=== PATIENT | female | born 1965 | race Caucasian/White ===

== ENCOUNTER 2020-12-22 15:46 | Emergency (ER) | payer OTHER ==
[~2020-12-22] VITALS: Ht 154.9 cm; Wt 66.2 kg
[~2020-12-22 15:46] MED LIST: ABILIFY 5 MG TAB5 MG PO; ASPIR 8181 MG PO; ASPIR-TRIN325 MG PO; ATIVAN1 MG; CITALOPRAM; FLEXERIL PO; HYDROCODON-ACE1 EAC7 PO; HYDROCODONE-AP1 EAC6 PO; KEPPRA 500 MG500 M2 PO; LEXAPRO20 MG PO; LISINOPRIL; LISINOPRIL2.5 MG PO; LISINOPRIL20 MG PO; MISC; PROZAC 10 MG CA10 M1 PO; TOPROL XL100 MG PO; TOPROL XL25 MG PO; TRINATE TABLET1 TAB PO
[2020-12-22 16:04] LABS: ABSOLUTE BASOPHILS 0.1 thou/uL (0.0-0.2); ABSOLUTE EOSINOPHILS 0.1 thou/uL (0.0-0.7); ABSOLUTE LYMPHOCYTES 2.4 thou/uL (0.8-5.3); ABSOLUTE MONOCYTES 0.9 thou/uL (0.0-1.2); ABSOLUTE NEUTROPHILS 4.8 thou/uL (1.6-8.1); EOSINOPHILS 1.6 %; HEMOGLOBIN 14.1 gm/dL (12.0-15.0); LYMPHOCYTES 28.9 %; MCH 32.5 pg (26.0-34.0); MCHC 34.4 g/dL (28.0-37.0); MCV 94.3 fL (80.0-100.0); MONOCYTES 10.6 %; NUCLEATED RBCS 0 /100WBC; PLATELET COUNT* 358 thou/uL (150-400); POLYS 57.9 %; RBC 4.34 mil/uL (4.20-5.00); RDW-CV 12.7 % (10.5-14.5); WBC 8.2 thou/uL (4.0-11.0)
[2020-12-22 16:05] LABS: URINE BILIRUBIN NEGATIVE (Negative); URINE BLOOD NEGATIVE (Negative); URINE CLARITY CLEAR; URINE COLOR YELLOW; URINE GLUCOSE-RANDOM NEGATIVE (Negative); URINE KETONES NEGATIVE (Negative); URINE LEUKOCYTES-REFLEX NEGATIVE (Negative); URINE NITRITE-REFLEX NEGATIVE (Negative); URINE PROTEIN NEGATIVE (Negative); URINE UROBILINOGEN 0.2 E.U./dl (0.2-1.0)
[2020-12-22 16:10] LABS: AMP/METHAMP Negative (Negative); BARBITURATES Negative (Negative); BENZODIAZEPINES Negative (Negative); COCAINE Negative (Negative); METHADONE Negative (Negative); OPIATES Negative (Negative); PCP Negative (Negative); THC Negative (Negative)
[2020-12-22 16:13] LABS: CALCIUM 8.6 mg/dL (8.5-10.1); CREATININE 0.9 mg/dL (0.6-1.3); POTASSIUM 3.6 mmol/L (3.5-5.1)
[2020-12-22 16:29] LABS: ALBUMIN 3.9 g/dL (3.4-5.0); TOTAL BILIRUBIN 0.2 mg/dL (<0.1-1.0); TOTAL PROTEIN 7.4 g/dL (6.4-8.2)
[2020-12-22 18:41] VITALS: BP 109/74
--- NOTE | 2020-12-23 10:43 | EKG ---
[place] [address] ELECTROCARDIOGRAM REPORT Name: ALEAH CHRISTOPHER Room: [facility]#: [id number] Admission: 12/22/20 Attend Phys: Discharge: 12/22/20 Date of : 65 Date of Service: 12/22/20 1557 Report #: [id number] THIS REPORT FOR: //name// [facility] ED Test Date: 2020-12-22 Test Time: 15:57:36 Pat Name: ALEAH CHRISTOPHER Department: Room: Gender: F [employer] Operational Test: PABLITO : 1965 Requested By: Kenney Morocho Order Number: [id number] MD: Silviano Camargo Measurements Intervals [place] Rate: 98 P: 52 FL: 161 QRS: 29 QRSD: 76 T: 17 QT: 359 QTc: 459 Interpretive Statements Sinus rhythm Probable left atrial enlargement Borderline T wave abnormalities Artifact in lead(s) II,III,aVR,aVL,aVF Compared to ECG 05/24/2016 10:39:22 Sinus tachycardia no longer present Left ventricular hypertrophy no longer present Electronically Signed On 12-23-2020 10:42:57 CDT by Silviano Camargo [email or web address] <ELECTRONICALLY SIGNED> By: Silviano Camargo MD, FACC 12/23/20 1042 1557 1557 Silviano Camargo MD, FAC /EPI
== END 2020-12-22 18:42 | disposition home or self-care (01) ==
LOC: M.ERS 15:46
PROVIDERS: Family Medicine
DX: T50.901A Poisoning by unspecified drugs, medicaments and biological substances, accidental (unintentional), initial encounter (principal); Z20.822 Contact with and (suspected) exposure to COVID-19; F10.129 Alcohol abuse with intoxication, unspecified; Y90.9 Presence of alcohol in blood, level not specified; I10 Essential (primary) hypertension; F41.9 Anxiety disorder, unspecified; F32.9 Major depressive disorder, single episode, unspecified; Z79.899 Other long term (current) drug therapy; Z90.49 Acquired absence of other specified parts of digestive tract; Z88.6 Allergy status to analgesic agent; Z88.5 Allergy status to narcotic agent; Y92.89 Other specified places as the place of occurrence of the external cause